=== PATIENT | male | born 1970 | race Two or more races ===

== ENCOUNTER 2017-07-02 13:18 | Emergency (ER) | payer OTHER ==
[~2017-07-02] VITALS: Ht 180.3 cm; Wt 90.7 kg
--- NOTE | 2017-07-02 13:26 | NUR ---
PT BIBRA FROM THE STREETS TO ER BED 10. C/O DIFFUSE ABDOMINAL PAIN. SUDDEN ONSET. PT IS CONCERNED ABOUT HIS GALLBLADDER. GOWNED AND PLACED ON MONITOR. STABLE VITALS. AWAITING MD MIMS.
--- NOTE | 2017-07-02 13:28 | NUR ---
DR ACEVEDO AT BEDSIDE FOR EVAL.
[2017-07-02] MEDS ORDERED: HYDROMORPHONE INJ 2 MG/ML DISP.SYRIN IV ONE (13:30)
[2017-07-02] MEDS ORDERED: IV NS 0.9% 1,000 ML BAG IV ONE (13:30)
[2017-07-02] MEDS ORDERED: ONDANSETRON HCL/PF 4 MG/2 ML VIAL IVP ONE (13:30)
--- NOTE | 2017-07-02 13:45 | NUR ---
IV LINE STARTED BLOOD DRAWN AND SENT TO LAB.
[2017-07-02] MEDS ORDERED: ONDANSETRON HCL/PF 4 MG/2 ML VIAL ONE (13:46)
[2017-07-02] MEDS ORDERED: HYDROMORPHONE 1 MG/1 ML DISP.SYRIN ONE (13:46)
[2017-07-02 13:48] LABS: BASOPHILS # (AUTO) 0.4 /CMM (0.0-0.2); BASOPHILS % (AUTO) 3.4 % (0.0-2.0); EOSINOPHILS # (AUTO) 0.2 /CMM (0.0-0.7); EOSINOPHILS % (AUTO) 2.2 % (0.0-6.0); HEMATOCRIT 48 % (39-51); HEMOGLOBIN 16.7 g/dL (13.5-17.5); LYMPHOCYTES # (AUTO) 3.4 /CMM (0.8-4.8); LYMPHOCYTES % (AUTO) 32.2 % (20.0-44.0); MEAN CORPUSCULAR HEMOGLOBIN 31 PG (26.0-33.0); MEAN CORPUSCULAR HGB CONC 35 g/dl (31.0-36.0); MEAN CORPUSCULAR VOLUME 89 fL (80-96); MONOCYTES # (AUTO) 1.2 /CMM (0.1-1.30); MONOCYTES % (AUTO) 11.3 % (2.0-12.0); NEUTROPHILS # (AUTO) 5.4 /CMM (1.8-8.9); NEUTROPHILS % (AUTO) 50.9 % (43.0-81.0); PLATELET COUNT (AUTO) 266 /CMM (150-450); RDW COEFFICIENT OF VARIATION 12.6 (11.5-15.0); RED BLOOD CELL COUNT(AUTO) 5.47 MIL/uL (4.5-6.0); WHITE BLOOD COUNT (AUTO) 10.6 K/uL (4.3-11.0)
[2017-07-02 13:58] LABS: CALCIUM, SERUM 9.2 mg/dL (8.5-10.1); CREATININE 1.1 mg/dL (0.6-1.3); POTASSIUM 4.9 mmol/L (3.5-5.1)
[2017-07-02 14:04] LABS: ALBUMIN 3.7 g/dL (3.4-5.0); BILIRUBIN,DIRECT 0.2 mg/dL (0.0-0.2); BILIRUBIN,TOTAL 1.1 mg/dL (0.2-1.0); TOTAL PROTEIN, SERUM 7.7 g/dL (6.4-8.2)
--- NOTE | 2017-07-02 14:25 | NUR ---
U/S TECH AT BEDSIDE FOR GALLBLADDER ULTRASOUND.
--- NOTE | 2017-07-02 15:26 | NUR ---
Patient discharged to home in stable condition. Written and verbal after care instructions given. Patient verbalizes understanding of instruction.IV removed. Catheter intact and site benign. Pressure and 4x4 applied to site. No bleeding noted.
[2017-07-02 15:33] VITALS: BP 132/87
== END 2017-07-02 15:35 | disposition home or self-care (01) ==
LOC: ER 13:21
DX: K80.80 Other cholelithiasis without obstruction (principal); Z88.0 Allergy status to penicillin; Z59.0 Homelessness
CPT/HCPCS: 36415; 76705-TC; 80048-TC; 80076-TC; 83690-TC; 85025-TC; A4606; J1170; J2405; J7030; Z7610